=== PATIENT | female | born 1975 | race Caucasian/White ===

== ENCOUNTER 2016-10-19 12:38 | Inpatient (IN) | payer OTHER ==
[2016-10-19] VITALS (10 sets, daily range): BP systolic 106–118; RESP 12–22; TEMP 97.6; Ht 172.7 cm; Wt 80.7 kg
[~2016-10-19] VITALS: Ht 172.7 cm; Wt 80.7 kg
[2016-10-19] MEDS ORDERED: DUONEB INH ONE (15:03)
[2016-10-19] MEDS ORDERED: METHYLPRED SOD SUCC 125 MG/2 ML VIAL ONE (15:38)
[2016-10-19] MEDS ORDERED: SODIUM CHLORIDE 0.9% 1,000 ML ONE (15:49)
[2016-10-19] MEDS: DUONEB INH SCH ×2 (19:00→22:22)
[2016-10-19] MEDS: LEVOFLOXACIN 750 MG/150 ML 150 ML IV SCH (19:30)
[2016-10-19] MEDS ORDERED: SALINE FLUSH 10 ML FLUSH PRN (19:30)
[2016-10-19] MEDS: SALINE FLUSH 10 ML FLUSH SCH (20:00)
[2016-10-19] MEDS: POLYETHYLENE GLYCOL 17 GM PACKET PO SCH (21:17)
[2016-10-19] MEDS: DOCUSATE SOD 100 MG CAP PO SCH (21:18)
[2016-10-19] MEDS: GABAPENTIN 400 MG CAP PO SCH (22:15)
[2016-10-19] MEDS: NEB-BROVANA 15 MCG/2 ML INH SCH (22:22)
[2016-10-20] VITALS (17 sets, daily range): BP systolic 92–153; RESP 8–23; TEMP 97.3–97.8
[2016-10-20] MEDS: DUONEB INH SCH ×6 (02:43→23:02)
[2016-10-20] MEDS: SODIUM CHLORIDE 0.9% FLUSH BAG 500 ML IV SCH (06:00)
[2016-10-20] MEDS: PANTOPRAZOLE 40 MG TAB PO SCH (06:07)
[2016-10-20] MEDS: NEB-BROVANA 15 MCG/2 ML INH SCH ×2 (07:11→18:24)
[2016-10-20] MEDS ORDERED: MISSING DOSE XX ONE (08:10)
[2016-10-20] MEDS: LIOTHYRONINE 25 MCG TAB PO SCH (08:49)
[2016-10-20] MEDS: LISINOPRIL 10 MG TAB PO SCH (08:49)
[2016-10-20] MEDS: POLYETHYLENE GLYCOL 17 GM PACKET PO SCH ×2 (08:50→21:00)
[2016-10-20] MEDS: LEVOFLOXACIN 750 MG/150 ML 150 ML IV SCH (08:50)
[2016-10-20] MEDS: GABAPENTIN 400 MG CAP PO SCH ×4 (08:50→21:05)
[2016-10-20] MEDS: DOCUSATE SOD 100 MG CAP PO SCH ×2 (08:50→21:04)
[2016-10-20] MEDS: ENOXAPARIN 40 MG/0.4 ML SYR SUBQ SCH (08:52)
[2016-10-20] MEDS: SALINE FLUSH 10 ML FLUSH SCH ×2 (08:52→23:39)
[2016-10-20] MEDS ORDERED: OMEPRAZOLE 40 MG PO SCH (09:00)
[2016-10-20] MEDS: FERROUS SULF 325 MG TAB PO SCH (21:05)
[2016-10-21] VITALS (7 sets, daily range): BP systolic 118–126; RESP 17–22; TEMP 97.4–98.6
[2016-10-21] MEDS: NEB-BROVANA 15 MCG/2 ML INH SCH ×2 (06:09→20:10)
[2016-10-21] MEDS: DUONEB INH SCH ×6 (06:09→23:11)
[2016-10-21] MEDS: PANTOPRAZOLE 40 MG TAB PO SCH (06:19)
[2016-10-21] MEDS: SODIUM CHLORIDE 0.9% FLUSH BAG 500 ML IV SCH (06:20)
[2016-10-21] MEDS: LEVOFLOXACIN 750 MG/150 ML 150 ML IV SCH (08:57)
[2016-10-21] MEDS: SALINE FLUSH 10 ML FLUSH SCH ×2 (08:57→19:54)
[2016-10-21] MEDS: LISINOPRIL 10 MG TAB PO SCH (08:58)
[2016-10-21] MEDS: ENOXAPARIN 40 MG/0.4 ML SYR SUBQ SCH (08:58)
[2016-10-21] MEDS: POLYETHYLENE GLYCOL 17 GM PACKET PO SCH ×2 (08:59→19:52)
[2016-10-21] MEDS: LIOTHYRONINE 25 MCG TAB PO SCH (08:59)
[2016-10-21] MEDS: GABAPENTIN 400 MG CAP PO SCH ×4 (08:59→19:52)
[2016-10-21] MEDS: FERROUS SULF 325 MG TAB PO SCH ×2 (08:59→19:52)
[2016-10-21] MEDS: DOCUSATE SOD 100 MG CAP PO SCH ×2 (08:59→19:52)
[2016-10-21] MEDS: METHYLPRED SOD SUCC 40 MG VIAL IV SCH ×2 (14:27→18:00)
[2016-10-22] MEDS: METHYLPRED SOD SUCC 40 MG VIAL IV SCH ×5 (01:49→22:33)
[2016-10-22 04:50] VITALS: BP_SYST 121; RESP 22; TEMP 98
[2016-10-22] MEDS: SODIUM CHLORIDE 0.9% FLUSH BAG 500 ML IV SCH (06:01)
[2016-10-22] MEDS: PANTOPRAZOLE 40 MG TAB PO SCH (06:01)
[2016-10-22] MEDS: DUONEB INH SCH ×5 (06:25→22:06)
[2016-10-22] MEDS: NEB-BROVANA 15 MCG/2 ML INH SCH ×2 (06:25→18:40)
[2016-10-22 08:37] VITALS: BP_SYST 144; TEMP 97.3
[2016-10-22] MEDS: LIOTHYRONINE 25 MCG TAB PO SCH (08:39)
[2016-10-22] MEDS: DOCUSATE SOD 100 MG CAP PO SCH ×2 (08:39→20:08)
[2016-10-22] MEDS: GABAPENTIN 400 MG CAP PO SCH ×4 (08:39→20:08)
[2016-10-22] MEDS: FERROUS SULF 325 MG TAB PO SCH ×2 (08:39→20:08)
[2016-10-22] MEDS: LISINOPRIL 10 MG TAB PO SCH (08:39)
[2016-10-22] MEDS: ENOXAPARIN 40 MG/0.4 ML SYR SUBQ SCH (08:40)
[2016-10-22] MEDS: SALINE FLUSH 10 ML FLUSH SCH ×2 (08:40→20:00)
[2016-10-22] MEDS: LEVOFLOXACIN 750 MG/150 ML 150 ML IV SCH (08:41)
[2016-10-22] MEDS: POLYETHYLENE GLYCOL 17 GM PACKET PO SCH ×2 (08:41→20:08)
[2016-10-22 16:16] VITALS: BP_SYST 143; RESP 18; TEMP 97.4
[2016-10-22 20:43] VITALS: BP_SYST 132; RESP 18; TEMP 97.5
[2016-10-22 23:48] VITALS: BP_SYST 127; RESP 18; TEMP 97.8
[2016-10-23 03:15] VITALS: BP_SYST 142; RESP 20; TEMP 97.5
[2016-10-23] MEDS: METHYLPRED SOD SUCC 40 MG VIAL IV SCH (04:49)
[2016-10-23] MEDS: PANTOPRAZOLE 40 MG TAB PO SCH (04:50)
[2016-10-23] MEDS: SODIUM CHLORIDE 0.9% FLUSH BAG 500 ML IV SCH (04:50)
[2016-10-23] MEDS: NEB-BROVANA 15 MCG/2 ML INH SCH ×2 (07:10→18:55)
[2016-10-23] MEDS: DUONEB INH SCH ×5 (07:10→23:13)
[2016-10-23 08:33] VITALS: BP_SYST 154; RESP 18; TEMP 97
[2016-10-23] MEDS: LEVOFLOXACIN 750 MG/150 ML 150 ML IV SCH (08:35)
[2016-10-23] MEDS: ENOXAPARIN 40 MG/0.4 ML SYR SUBQ SCH (08:36)
[2016-10-23] MEDS: SALINE FLUSH 10 ML FLUSH SCH ×2 (08:36→19:52)
[2016-10-23] MEDS: GABAPENTIN 400 MG CAP PO SCH ×4 (08:36→19:53)
[2016-10-23] MEDS: LIOTHYRONINE 25 MCG TAB PO SCH (08:37)
[2016-10-23] MEDS: POLYETHYLENE GLYCOL 17 GM PACKET PO SCH ×2 (08:37→19:53)
[2016-10-23] MEDS: DOCUSATE SOD 100 MG CAP PO SCH ×2 (08:37→19:52)
[2016-10-23] MEDS: FERROUS SULF 325 MG TAB PO SCH ×2 (08:37→19:53)
[2016-10-23] MEDS: LISINOPRIL 10 MG TAB PO SCH (08:37)
[2016-10-23] MEDS: PREDNISONE 20 MG TAB PO SCH (12:38)
[2016-10-23 19:42] VITALS: BP_SYST 124; RESP 20; TEMP 98
[2016-10-24] VITALS: BP_SYST 128; RESP 18; TEMP 98.6
[2016-10-24 04:04] VITALS: BP_SYST 124; RESP 22; TEMP 97.9
[2016-10-24] MEDS: PANTOPRAZOLE 40 MG TAB PO SCH (05:14)
[2016-10-24] MEDS: SODIUM CHLORIDE 0.9% FLUSH BAG 500 ML IV SCH ×2 (05:14→09:41)
[2016-10-24] MEDS: DUONEB INH SCH ×3 (06:52→14:45)
[2016-10-24] MEDS: NEB-BROVANA 15 MCG/2 ML INH SCH (06:52)
[2016-10-24 07:29] VITALS: BP_SYST 149; RESP 20; TEMP 97.6
[2016-10-24] MEDS: POLYETHYLENE GLYCOL 17 GM PACKET PO SCH (09:00)
[2016-10-24] MEDS: DOCUSATE SOD 100 MG CAP PO SCH (09:00)
[2016-10-24] MEDS: ENOXAPARIN 40 MG/0.4 ML SYR SUBQ SCH (09:00)
[2016-10-24] MEDS: LEVOFLOXACIN 750 MG/150 ML 150 ML IV SCH (09:19)
[2016-10-24] MEDS: SALINE FLUSH 10 ML FLUSH SCH (09:19)
[2016-10-24] MEDS: GABAPENTIN 400 MG CAP PO SCH (09:20)
[2016-10-24] MEDS: FERROUS SULF 325 MG TAB PO SCH (09:20)
[2016-10-24] MEDS: PREDNISONE 20 MG TAB PO SCH (09:20)
[2016-10-24] MEDS: LISINOPRIL 10 MG TAB PO SCH (09:20)
[2016-10-24] MEDS: LIOTHYRONINE 25 MCG TAB PO SCH (09:20)
[2016-10-24 11:58] VITALS: BP_SYST 141; RESP 20; TEMP 97.3
[2016-10-24 13:33] VITALS: BP_SYST 141; RESP 20; TEMP 97.3
== END 2016-10-24 15:50 | DRG 189 ==
LOC: ENRESERVTM → ENRESERVDT → ER 12:38 → ENPENDDIS 17:33 → EMR 17:33 → ICU 18:23 → 3S 10-20 11:30
PROVIDERS: ADMIT Internal Medicine; ATTEND Internal Medicine
DX: J96.02 Acute respiratory failure with hypercapnia (principal); G92 Toxic encephalopathy; J18.9 Pneumonia, unspecified organism; N17.9 Acute kidney failure, unspecified; E46 Unspecified protein-calorie malnutrition; E87.2 Acidosis; J44.0 Chronic obstructive pulmonary disease with (acute) lower respiratory infection; F11.20 Opioid dependence, uncomplicated; F15.20 Other stimulant dependence, uncomplicated; N39.0 Urinary tract infection, site not specified; E87.1 Hypo-osmolality and hyponatremia; M62.82 Rhabdomyolysis; F17.210 Nicotine dependence, cigarettes, uncomplicated; Z71.51 Drug abuse counseling and surveillance of drug abuser; E03.9 Hypothyroidism, unspecified; J96.01 Acute respiratory failure with hypoxia; B96.20 Unspecified Escherichia coli [E. coli] as the cause of diseases classified elsewhere; K21.9 Gastro-esophageal reflux disease without esophagitis; I10 Essential (primary) hypertension; D64.9 Anemia, unspecified; H72.91 Unspecified perforation of tympanic membrane, right ear; Z68.27 Body mass index [BMI] 27.0-27.9, adult; M54.9 Dorsalgia, unspecified
CPT/HCPCS: 36415; 36600; 71020; 80048; 80053; 80307; 81001; 82009; 82550; 82803; 82947; 83540; 83605; 83690; 83735; 83874; 84466; 85025; 86141; 86701; 87040; 87077; 87088; 87186; 87804; 94640; 94660; 94799; 99222; 99232; 99233; 99238; 99291